=== PATIENT | male | born 1970 | race Caucasian/White ===

== ENCOUNTER 2017-10-21 22:59 | Emergency (ER) | payer MEDICAID ==
[2017-10-21 23:16] VITALS: BP 137/78
--- NOTE | 2017-10-22 00:15 | ED Physician Documentation ---
History of Present Illness - Stated complaint Stated Complaint: MED REFILL - Chief complaint Chief Complaint: General - History obtained from History obtained from: Patient - History of Present Illness Timing: Chronic - Additonal information Additional information: Patient is a 47 year old male with a history of ptsd and anxiety who is presenting to the emergency department, originally stating med refill and then he change it to saying that he is homeless and not from here and just needs some resources. Review of Systems Ten Systems: 10 systems reviewed and negative PD PAST MEDICAL HISTORY - Allergies Allergies/Adverse Reactions: Allergies Allergy/AdvReac Type Severity Reaction Status Date / Time No Known Drug Allergies Allergy Verified 10/21/17 23:16 PD ED PE NORMAL - Vitals Vital signs reviewed: Yes - General General: Alert and oriented X 3, No acute distress - HEENT HEENT: Atraumatic, PERRL - Cardiac Cardiac: RRR - Respiratory Respiratory: No respiratory distress - Derm Derm: Normal color - Extremities Extremities: No deformity - Neuro Neuro: Alert and oriented X 3, No motor deficit, Normal speech Eye Opening: Spontaneous Motor: Obeys Commands Verbal: Oriented GCS Score: 15 Results - Vitals Vitals: Vital Signs - 24 hr 10/21/17 23:14 Temperature 36.5 C Heart Rate 77 Respiratory 16 Rate Blood Pressure 137/78 H O2 Saturation 95 Oxygen O2 Source Room air PD MEDICAL DECISION MAKING - ED course Complexity details: reviewed old records, considered differential, d/w patient ED course: Patient was seen and examined at bedside. patient was well appearing and in no distress. patient's vital signs were within normal limits. Patient had his klonipin pills with him, which her originally said he lost. patient was given information on homeless shelters. Patient required no further work up and was stable for discharge with outpatient follow up. - Sepsis Event Vital Signs: Vital Signs - 24 hr 10/21/17 23:14 Temperature 36.5 C Heart Rate 77 Respiratory 16 Rate Blood Pressure 137/78 H O2 Saturation 95 Oxygen O2 Source Room air Departure - Departure Disposition: 01 Home, Self Care Clinical Impression: Homelessness Condition: Good Instructions: ED Stress React Follow-Up: [facility] [Provider Group] Comments: Your have been giving some resources for homeless fpc and a local clinic. You will need to follow up with the clinic to help establish follow up care. You may return to the emergency department at any time for new, worsening or uncontrollable symptoms.
== END 2017-10-22 00:25 | disposition home or self-care (01) ==
LOC: ED 22:59
DX: Z76.0 Encounter for issue of repeat prescription (principal); F43.10 Post-traumatic stress disorder, unspecified; F41.9 Anxiety disorder, unspecified; Z59.0 Homelessness
CPT/HCPCS: 99281; 99282